=== PATIENT | female | born 1950 | race Caucasian/White ===

== ENCOUNTER → 2016-06-13 | Outpatient (CLI) | payer MEDICARE, MEDICAID ==
[2016-06-13 10:02] LABS: ANION GAP 11 (5-19); BLOOD UREA NITROGEN 12 mg/dL (7-20); CALCIUM 9.3 mg/dL (8.4-10.2); CARBON DIOXIDE 26 mmol/L (22-30); CHLORIDE 106 mmol/L (98-107); CREATININE RESULT 0.87 mg/dL (0.52-1.25); Direct HDL 43 mg/dL (>40); GLUCOSE 100 mg/dL (75-110); POTASSIUM 4.4 mmol/L (3.6-5.0); SODIUM 142.5 mmol/L (137-145); TRIGLYCERIDES 221 mg/dL (<150)
[2016-06-13 10:13] LABS: DIRECT LDL 70 mg/dL (<100)
[2016-06-13 10:16] LABS: VLDL CHOLESTEROL 44.2 mg/dL (10-31)
== END ==
LOC: OD 08:58
PROVIDERS: ATTEND Internal Medicine Cardiovascular Disease
DX: E78.2 Mixed hyperlipidemia (principal)
CPT/HCPCS: 36415; 80048; 80061

== ENCOUNTER 2016-09-04 15:36 | Emergency (ER) | payer MEDICARE, MEDICAID ==
[2016-09-04 16:12] VITALS: BP 139/71
--- NOTE | 2016-09-04 16:58 | ER Document Report ---
HPI - HPI Patient complains to provider of: Wrist pain Pain Level: 0 Context: Patient is a 66-year-old female presents emergency department complaining of right wrist pain. Patient states she fell last evening on an outstretched hand. Admits to pain with movement and with making a fist but otherwise denies any other symptoms. Sensation intact. History of breast cancer - REPRODUCTIVE Reproductive: DENIES: : - DERM Skin Color: Normal Past Medical History - Social History Smoking Status: Unknown if Ever Smoked Family History: Reviewed & Not Pertinent Patient has suicidal ideation: No Patient has homicidal ideation: No - Past Medical History Cardiac Medical History: Reports: Hx Coronary Artery Disease, Hx Heart Attack - 2009, Hx Hypercholesterolemia, Hx Hypertension Denies: Hx Atrial Fibrillation, Hx Congestive Heart Failure, Hx Peripheral Vascular Disease, Hx Pulmonary Embolism, Hx Heart Murmur Pulmonary Medical History: Reports: Hx COPD - no inhalers Denies: Hx Asthma, Hx Bronchitis, Hx Pneumonia, Hx Respiratory Failure, Hx Sleep Apnea, Hx Tuberculosis Neurological Medical History: Denies: Hx Cerebrovascular Accident, Hx Seizures Endocrine Medical History: Denies: Hx Graves' Disease, Hx Hyperthyroidism, Hx Hypothyroidism Renal/ Medical History: Denies: Hx End Stage Renal Disease, Hx Kidney Stones, Hx Ovarian Cysts, Hx Peritoneal Dialysis, Hx Pelvic Inflammatory Disease Malignancy Medical History: Reports: Hx Breast Cancer. Denies: Hx Cervical Cancer, Hx Leukemia, Hx Lung Cancer, Hx Ovarian Cancer GI Medical History: Denies: Hx Crohn's Disease, Hx Gastroesophageal Reflux Disease, Hx Hepatitis, Hx Hiatal Hernia, Hx Irritable Bowel, Hx Liver Failure, Hx Ulcer Musculoskeltal Medical History: Reports Hx Arthritis - ra, Denies Hx Fibromyalgia, Denies Hx Multiple Sclerosis, Denies Hx Muscular Dystrophy Psychiatric Medical History: Reports: Hx Bipolar Disorder Denies: Hx Dementia, Hx Depression, Hx Post Traumatic Stress Disorder, Hx Schizophrenia Traumatic Medical History: Denies: Hx Fractures Infectious Medical History: Denies: Hx Hepatitis, Hx HIV Past Surgical History: Reports: Hx Appendectomy, Hx Cholecystectomy, Hx Mastectomy - bilateral AVOID RIGHT, Hx Tonsillectomy. Denies: Hx Bowel Surgery , Hx Section, Hx Colostomy, Hx Coronary Artery Bypass Graft, Hx Gastric Bypass Surgery, Hx Herniorrhaphy, Hx Hysterectomy, Hx Pacemaker, Hx Tubal Ligation. Comment Only: Hx Open Heart Surgery - stentsX2 - Immunizations Hx Diphtheria, Pertussis, Tetanus Vaccination: Yes Hx Pneumococcal Vaccination: 11/30/11 Vertical Provider Document - CONSTITUTIONAL Agree With Documented VS: Yes Exam Limitations: No Limitations General Appearance: WD/WN, No Apparent Distress - INFECTION CONTROL TRAVEL OUTSIDE OF THE [place] IN LAST 30 DAYS: No - RESPIRATORY O2 Sat by Pulse Oximetry: 95 - CARDIOVASCULAR Pulses: Normal: Radial Notes: Capillary refill less than 2 seconds in all upper extremity digits - MUSCULOSKELETAL/EXTREMETIES Musculoskeletal/Extremeties: MAEW, FROM, Tender - At the base of the thumb on the right hand, No Edema. negative: Eccymosis - NEURO Level of Consciousness: Awake, Alert, Appropriate Motor/Sensory: No Motor Deficit, No Sensory Deficit - DERM Integumentary: Warm, Dry, No Rash Course - Re-evaluation Re-evalutation: 09/04/16 21:01 No evidence of fracture on x-ray. Patient placed in splint for wrist sprain follow up with primary care as needed - Vital Signs Vital signs: Temp Pulse Resp BP Pulse Ox 97.5 F 66 16 139/71 H 95 09/04/16 16:11 09/04/16 16:11 09/04/16 16:11 09/04/16 16:11 09/04/16 16:11 - Diagnostic Test Radiology reviewed: Image reviewed, Reports reviewed Discharge - Discharge Clinical Impression: Wrist pain, acute Condition: Good Disposition: HOME, SELF-CARE Instructions: Wrist Sprain ([facility]), Ice & Elevation ([facility]), Use of Over-The- Counter Ibuprofen ([facility]) Additional Instructions: Follow-up with your primary care provider if your symptoms do not improve in 4- 5 days Forms: Elevated Blood Pressure
== END 2016-09-04 17:00 | disposition home or self-care (01) ==
LOC: ER 15:36
DX: M25.531 Pain in right wrist (principal); Z85.3 Personal history of malignant neoplasm of breast
CPT/HCPCS: 99283; 73130; L3984

== ENCOUNTER → 2016-12-21 | Outpatient (CLI) | payer MEDICARE, MEDICAID ==
[2016-12-21 11:44] LABS: ANION GAP 11 (5-19); BLOOD UREA NITROGEN 20 mg/dL (7-20); CALCIUM 10.2 mg/dL (8.4-10.2); CARBON DIOXIDE 27 mmol/L (22-30); CHLORIDE 106 mmol/L (98-107); CHOLESTEROL 154.51 mg/dL (0-200); Direct HDL 53 mg/dL (>40); GLUCOSE 93 mg/dL (75-110); POTASSIUM 4.4 mmol/L (3.6-5.0); SODIUM 143.6 mmol/L (137-145); TRIGLYCERIDES 121 mg/dL (<150)
[2016-12-21 11:55] LABS: DIRECT LDL 83 mg/dL (<100)
== END ==
LOC: OD 10:28
PROVIDERS: ATTEND Internal Medicine Cardiovascular Disease
DX: E78.2 Mixed hyperlipidemia (principal); Z79.899 Other long term (current) drug therapy
CPT/HCPCS: 36415; 80048; 80061

== ENCOUNTER → 2017-07-05 | Outpatient (CLI) | payer MEDICARE, MEDICAID ==
[2017-07-05 11:15] LABS: ALANINE AMINOTRANSFERASE 35 U/L (9-52); ALKALINE PHOSPHATASE 83 U/L (38-126); ANION GAP 7 (5-19); ASPARTATE AMINO TRANSFERASE 30 U/L (14-36); BILIRUBIN,DIRECT 0.4 mg/dL (0.0-0.4); BILIRUBIN,TOTAL 0.5 mg/dL (0.2-1.3); BLOOD UREA NITROGEN 11 mg/dL (7-20); CALCIUM 9.6 mg/dL (8.4-10.2); CARBON DIOXIDE 29 mmol/L (22-30); CHLORIDE 107 mmol/L (98-107); CHOLESTEROL 155.27 mg/dL (0-200); GLUCOSE 94 mg/dL (75-110); POTASSIUM 4.6 mmol/L (3.6-5.0); SODIUM 143.4 mmol/L (137-145); TOTAL PROTEIN 6.7 g/dL (6.3-8.2); TRIGLYCERIDES 205 mg/dL (<150)
[2017-07-05 11:26] LABS: DIRECT LDL 78 mg/dL (<100)
== END ==
LOC: OD 10:10
PROVIDERS: ATTEND Internal Medicine Cardiovascular Disease
DX: E78.2 Mixed hyperlipidemia (principal); I10 Essential (primary) hypertension; Z79.899 Other long term (current) drug therapy
CPT/HCPCS: 36415; 80048; 80061; 80076

== ENCOUNTER → 2017-08-15 | Outpatient (CLI) | payer MEDICARE, MEDICAID ==
[~2017-08-15] MED LIST: REGADENOSON INJ 0.4 MG/5 ML DISP.SYRIN IV ONE
--- NOTE | 2017-08-16 08:34 | RADIOLOGY REPORT ---
STRESS TEST REPORT PATIENT NAME: DIANE STERLING ROOM#: DATE OF SERVICE: 08/15/2017 AGE: 67Y ORDER#: [id number] REFERRING MD: ROMY BOYD M.D. PROCEDURE PERFORMED: Rest/stress single isotope Cardiolite SPECT imaging with IV Lexiscan stress and gated SPECT imaging. INDICATION: Assessment of coronary artery disease. CLINICAL HISTORY: This 67-year-old female with coronary artery disease and continuing risk factors of hypertension, hypercholesterolemia, current symptomatology includes chest pain. REPORT The patient received IV Lexiscan of 0.4 mg infused over 10 seconds. The resting heart rate was 74 BPM and increased to 96 BPM at end infusion. The resting blood pressure was 114/78 and decreased to 108/66 at end infusion. The patient had symptoms of dyspnea, shortness of breath, and some nausea, but no chest pains. Resting 12-lead EKG showed NSR70 BPM with nonspecific ST/T changes in the anterolateral leads. At end infusion, heart rate was 97 BPM and no increased ST changes were seen. Myocardial perfusion imaging was performed at rest 60 minutes following the injection of 10.49 mCi of Cardiolite. Ten seconds after the IV Lexiscan injection, the patient was injected with 32.8 mCi of Cardiolite and flushed. Gated post-stress tomographic imaging was performed 60 minutes after stress. SUMMARY OF FINDINGS: The overall quality of the study is good. The left ventricular cavity is noted to be normal in size on both the rest and stress studies. There is no evidence of abnormal dilatation of the left ventricle. The left ventricular ejection fraction is 59%. SPECT images showed a small reversible perfusion defect in the apical anterior wall, this is incomplete reversibility only. The apical lateral wall also showed a small reversible perfusion defect. There is a fixed perfusion defect affecting the apical inferior wall. Gated SPECT imaging showed reduced motion contraction in the apical anterior wall. The fixed apical inferior wall perfusion defect showed no motion contraction. The left ventricular ejection fraction was calculated to be 59%. IMPRESSION: Myocardial perfusion imaging is abnormal. There are 2 small areas of reversible perfusion defect seen in the apical anterior wall and the apical lateral wall, the former showed incomplete reversibility, the latter showed complete reversibility. There is also a small fixed perfusion defect in the apical inferior wall with a reduction motion contraction in the apical anterior wall and no motion contraction in the apical inferior wall. No prior studies for comparison. INTERPRETING PHYSICIAN: ROMY BOYD M.D. /: [id number] TT: [id number] ID: [id number] /: [id number] TD: [id number] JOB: [id number] cc:ROMY BOYD M.D. > MTDD
== END ==
LOC: RAD 06:00
PROVIDERS: ATTEND Internal Medicine Cardiovascular Disease
DX: I25.119 Atherosclerotic heart disease of native coronary artery with unspecified angina pectoris (principal)
CPT/HCPCS: 93017; 78452; A9500; J2785; Q9969

== ENCOUNTER 2017-09-28 09:00 | Day surgery (SDC) | payer MEDICARE, MEDICAID ==
[~2017-09-28 09:00] MED LIST changes: +DIPHENHYDRAMINE HCL 50 MG/ML VIAL ONE; +EPINEPHRINE INJ 1 MG/10 ML DISP.SYRIN ONE; +FLUMAZENIL INJ 0.5 MG/5 ML VIAL ONE; +GLUCAGON,HUMAN RECOMB 1 MG INJ ONE; +NALOXONE HCL INJ/PF 0.4 MG/1 ML SDV ONE; +ONDANSETRON HCL INJ/PF 4 MG/2 ML SDV ONE; -REGADENOSON INJ 0.4 MG/5 ML DISP.SYRIN IV ONE
[2017-09-28] MEDS: MIDAZOLAM 2 MG/2 ML INJ ONE ×4 (09:20→09:35)
[2017-09-28] MEDS: FENTANYL CITRATE INJ/PF 100 MCG/2 ML AMPUL ONE ×3 (09:21→09:42)
--- NOTE | 2017-09-28 09:54 | Discharge Summary ---
Discharge Summary (SDC) - Discharge Final Diagnosis: 1. Normal colon 2. History of colon polyps Date of Surgery: 09/28/17 Discharge Date: 09/28/17 Condition: Good Treatment or Instructions: [place] [id number] POST ENDOSCOPY DISCHARGE INSTRUCTIONS 1. Diet: Start clear liquids that a regular diet as tolerated. 2. Resume all preoperative medications. All oral anticoagulants and aspirins can be resumed 24 hours after procedure. 3. If a polypectomy was performed some bleeding per rectum may occur. This should stop within 3 days. If not, please contact the office. 4. If you had a colonoscopy you may experience some bloating and delayed return of normal bowel function for several days, your regular bowel movement pattern should resume within a week. 5. Please contact [facility] at to make an appointment with Dr. Biggs for 1 to 3 weeks following procedure. 6. If you have any questions or concerns regarding your care,treatment plan or follow up, please contact our office. 7. Per surveillance guidelines, patient be appropriate candidate for consideration for follow-up colonoscopy on an accelerated time frame in 6-8 years Referrals: SON PARADA MD [Primary Care Provider] - Discharge Diet: As Tolerated Discharge Activity: Activity As Tolerated Home Care Assistance: None Needed Report the Following to Your Physician Immediately: Shortness of Breath, Increase in Pain, Fever over 101 Degrees
--- NOTE | 2017-09-28 09:57 | Operative Report ---
Operative Report DATE OF SURGERY: 09/28/17 PREOPERATIVE DIAGNOSIS: 1. Personal history of colon polyp. 2. History of breast carcinoma POSTOPERATIVE DIAGNOSIS: Same wit. 1. external hemorrhoids, edematous. 2. Otherwise normal colonoscopy OPERATION: Total colonoscopy to cecum with photodocumentation SURGEON: NARDA HARRY ANESTHESIA: Moderate Sedation TISSUE REMOVED OR ALTERED: None COMPLICATIONS: None ESTIMATED BLOOD LOSS: None INTRAOPERATIVE FINDINGS: See below PROCEDURE: Obtaining informed consent the patient was taken from the preoperative holding area to the main endoscopy suite where monitoring devices were attached to the patient. Plan and surgical timeout were conducted The patient was placed in the left lateral decubitus position with knees to chest. A perianal examination was performed. There were 3 external hemorrhoids , edematous, nonthrombosed. There was no visible or palpable anorectal pathology. Sphincter tone was felt to be normal. The flexible adult colonoscope was advanced through the anal rectal canal, all the way to the cecum. Visualization of the cecum was achieved and the ileocecal valve, the appendiceal orifice and transillumination of the anterior abdominal wall. This was an excellent study on the well-prepped bowel. The colonoscope was withdrawn slowly and methodically checked and the mucosa carefully. There was no evidence of tumor, stricture, bleeding or polyp. There was no evidence of diverticuloses. The scope was slowly withdrawn through the anal rectal canal. Complete visualization of the rectum was achieved with photodocumentation. The scope was withdrawn to the patient's anus. The patient tolerated the procedure well and was taken to the recovery area in stable condition. Per surveillance guidelines, patient be appropriate candidate for surveillance colonoscopy in 6-8 years given her slightly increased risk of colon cancer based on personal history of polyps removed in the past, and breast cancer.
[2017-09-28 11:09] VITALS: BP 114/66
== END 2017-09-28 11:05 | disposition home or self-care (01) ==
LOC: END 09:00
PROVIDERS: ATTEND Surgery
DX: Z12.11 Encounter for screening for malignant neoplasm of colon (principal); Z86.010 Personal history of colon polyps; I10 Essential (primary) hypertension; I25.10 Atherosclerotic heart disease of native coronary artery without angina pectoris; E78.00 Pure hypercholesterolemia, unspecified; M06.9 Rheumatoid arthritis, unspecified; F17.210 Nicotine dependence, cigarettes, uncomplicated; K44.9 Diaphragmatic hernia without obstruction or gangrene; I74.9 Embolism and thrombosis of unspecified artery; F32.9 Major depressive disorder, single episode, unspecified; Z79.82 Long term (current) use of aspirin; Z85.3 Personal history of malignant neoplasm of breast
CPT/HCPCS: G0121; J2250; J3010; 45378; J0171; J1200; J1610; J2310; J2405; J3490

== ENCOUNTER → 2018-02-26 | Outpatient (CLI) | payer MEDICARE, MEDICAID ==
--- NOTE | 2018-02-26 11:12 | RADIOLOGY REPORT (SQ) ---
EXAM DESCRIPTION: VENOUS UNILATERAL LOWER COMPLETED DATE/TIME: 02/26/2018 11:03 am REASON FOR STUDY: LLE PAIN AND SWELLING M79.609 PAIN IN UNSPECIFIED LIMB M79.89 OTHER SPECIFIED SO FT TISSUE DISORDERS COMPARISON: None. TECHNIQUE: Dynamic and static llanes scale and color images acquired of the left leg venous system. Se lected spectral images acquired with additional compression and augmentation maneuvers. The contralat eral common femoral vein and saphenofemoral junction were also imaged. Images stored on PACS. LIMITATIONS: Left peroneal veins were not visualized FINDINGS: LEFT COMMON FEMORAL: Normal phasicity, compression and augmentation. No visualized echogenic material on g ray scale. No defects on color images. FEMORAL: Normal compression and augmentation. No visualized echogenic material on llanes scale. No defe cts on color images. POPLITEAL: Normal compression, augmentation. No visualized echogenic material on llanes scale. No defec ts on color images. PERONEAL VEINS: NOT VISUALIZED. POSTERIOR TIBIAL VEINS: Normal compression, augmentation. No visualized echogenic material on llanes [facility]. No defects on color images GSV and SSV: Normal compression, augmentation. No visualized echogenic material on llanes scale. No def ects on color images. ANY DEEP VENOUS INSUFFICIENCY: Not evaluated. ANY EVIDENCE OF POPLITEAL CYST: No. OTHER: No other significant finding. RIGHT COMMON FEMORAL VEIN AND SAPHENOFEMORAL JUNCTION: Normal phasicity, compression and augmentation. No visualized echogenic material on llanes scale. No de fects on color images. IMPRESSION: NO EVIDENCE OF DVT OR SVT IN THE LEFT LEG. TECHNICAL DOCUMENTATION: JOB ID: [id number] [employer]- All Rights Reserved Reading location - IP/workstation name: [email or web address] / [email or web address]
--- NOTE | 2018-02-26 11:32 | RADIOLOGY REPORT (SQ) ---
EXAM DESCRIPTION: TIBIA FIBULA LEFT COMPLETED DATE/TIME: 02/26/2018 11:13 am REASON FOR STUDY: PAIN IN UNSPEC LIMB(M79.609),OTHER SPECIFIED SOFT TISSUE DISORDERS (M79.89) M79.60 9 PAIN IN UNSPECIFIED LIMB M79.89 OTHER SPECIFIED SOFT TISSUE DISORDERS COMPARISON: None. NUMBER OF VIEWS: Two views. TECHNIQUE: Two radiographic images acquired of the left tibia and fibula to include the knee and ank le in at least one projection. LIMITATIONS: None. FINDINGS: MINERALIZATION: Normal. BONES: No acute fracture or dislocation. No worrisome bone lesions. SOFT TISSUES: No obvious swelling or foreign body. OTHER: Mild degenerative changes at the ankle. IMPRESSION: 1. NEGATIVE STUDY OF THE LEFT TIBIA AND FIBULA. TECHNICAL DOCUMENTATION: JOB ID: [id number] [email or web address]- All Rights Reserved Reading location - IP/workstation name: [email or web address]
--- NOTE | 2018-02-26 11:33 | RADIOLOGY REPORT (SQ) ---
EXAM DESCRIPTION: ANKLE LEFT COMPLETE COMPLETED DATE/TIME: 02/26/2018 11:13 am REASON FOR STUDY: PAIN IN UNSPECIFIED LIMB (M79.609), OTHER SPECIFIED SOFT TISSUE DIS(M79.89) M79.60 9 PAIN IN UNSPECIFIED LIMB M79.89 OTHER SPECIFIED SOFT TISSUE DISORDERS COMPARISON: None. NUMBER OF VIEWS: Three views. TECHNIQUE: AP, lateral, and oblique radiographic images acquired of the left ankle. LIMITATIONS: None. FINDINGS: MINERALIZATION: Normal. BONES: No acute fracture or dislocation. Calcaneal spurs. JOINTS: No effusions. SOFT TISSUES: No soft tissue swelling. No foreign body. OTHER: No other significant finding. IMPRESSION: 1. No acute osseous findings. 2. Calcaneal spurs. TECHNICAL DOCUMENTATION: JOB ID: [id number]- All Rights Reserved Reading location - IP/workstation name: [email or web address]
== END ==
LOC: SP 09:34
PROVIDERS: ATTEND Internal Medicine
DX: M79.662 Pain in left lower leg (principal); M77.32 Calcaneal spur, left foot
CPT/HCPCS: 93971

== ENCOUNTER → 2018-03-06 | Outpatient (CLI) | payer MEDICARE, MEDICAID ==
--- NOTE | 2018-03-06 16:45 | RADIOLOGY REPORT (SQ) ---
EXAM DESCRIPTION: NM 3 PHASE BONE SCAN COMPLETED DATE/TIME: 03/06/2018 2:08 pm REASON FOR STUDY: STRESS FX LEFT ANKLE (M84.372A) M84.372A STRESS FRACTURE, LEFT ANKLE, INITIAL ENC OUNTER FOR COMPARISON: 02/26/2018 radiographs of the left tibia and fibula and ankle. RADIONUCLIDE AND DOSE: 21.3 millicuries Tc99m HDP. The route of agent administration: Intravenous. ADDITIONAL DRUGS AND DOSES: None. TECHNIQUE: Following injection of the radiopharmaceutical, serial blood flow images acquired. Equil ibrium blood pool images then acquired. Routine delayed images at 3 hour acquired of the areas of cl inical concern with additional focused images as needed. AREA OF INTEREST: Left ankle LIMITATIONS: None. FINDINGS: VASCULAR FLOW IMAGES: No asymmetry or focal areas of hyperemia. BLOOD POOL IMAGES: No asymmetry or focal areas of soft-tissue hyper-perfusion. BONES: No overtly suspicious changes. Spotty areas of uptake in the bilateral mid feet and in the le ft forefoot, likely the great toe MP joint. Changes look degenerative. OTHER: No other significant finding. IMPRESSION: 1. No gross evidence of ankle region fracture. Suspect degenerative changes in the feet as above. Only seen on delayed imaging. 1st 2 phases of the bone scan are normal. COMMENT: Quality measure 147: Current bone scan is compared with any available plain radiographs, p rior bone scans, and CT/MRI. TECHNICAL DOCUMENTATION: JOB ID: [id number] [employer]- All Rights Reserved Reading location - IP/workstation name: [email or web address]
== END ==
LOC: RAD 09:43
PROVIDERS: ATTEND Family Medicine
DX: M84.372A Stress fracture, left ankle, initial encounter for fracture (principal)
CPT/HCPCS: 78315; A9561; Q9969

== ENCOUNTER → 2018-03-06 | Outpatient (CLI) | payer MEDICARE, MEDICAID ==
[2018-03-06 10:21] LABS: ALANINE AMINOTRANSFERASE 24 U/L (9-52); ALKALINE PHOSPHATASE 95 U/L (38-126); ANION GAP 11 (5-19); ASPARTATE AMINO TRANSFERASE 25 U/L (14-36); BILIRUBIN,DIRECT 0.3 mg/dL (0.0-0.4); BILIRUBIN,TOTAL 0.6 mg/dL (0.2-1.3); BLOOD UREA NITROGEN 13 mg/dL (7-20); CALCIUM 9.6 mg/dL (8.4-10.2); CARBON DIOXIDE 28 mmol/L (22-30); CHLORIDE 105 mmol/L (98-107); CHOLESTEROL 163.22 mg/dL (0-200); GLUCOSE 105 mg/dL (75-110); POTASSIUM 4.6 mmol/L (3.6-5.0); SODIUM 143.9 mmol/L (137-145); TOTAL PROTEIN 6.8 g/dL (6.3-8.2); TRIGLYCERIDES 262 mg/dL (<150)
[2018-03-06 10:32] LABS: DIRECT LDL 92 mg/dL (<100)
[2018-03-06 10:35] LABS: VLDL CHOLESTEROL 52.4 mg/dL (10-31)
== END ==
LOC: OD 09:26
PROVIDERS: ATTEND Internal Medicine Cardiovascular Disease
DX: E78.2 Mixed hyperlipidemia (principal); I10 Essential (primary) hypertension; Z79.899 Other long term (current) drug therapy
CPT/HCPCS: 36415; 80048; 80061; 80076

== ENCOUNTER → 2018-06-04 | Outpatient (CLI) | payer MEDICARE, MEDICAID ==
[2018-06-04 11:03] LABS: HEMATOCRIT 48.1 % (36.0-47.0); HEMOGLOBIN 16.8 g/dL (12.0-15.5); MEAN CORPUSCULAR HEMOGLOBIN 30.8 pg (27.0-33.4); MEAN CORPUSCULAR HGB CONC 34.9 g/dL (32.0-36.0); MEAN CORPUSCULAR VOLUME 88 fl (80-97); PLATELET COUNT 182 10^3/uL (150-450); RED BLOOD COUNT 5.46 10^6/uL (3.72-5.28); WHITE BLOOD COUNT 9.8 10^3/uL (4.0-10.5)
[2018-06-04 11:26] LABS: ALANINE AMINOTRANSFERASE 31 U/L (9-52); ALBUMIN 4.4 g/dL (3.5-5.0); ALKALINE PHOSPHATASE 95 U/L (38-126); ANION GAP 8 (5-19); ASPARTATE AMINO TRANSFERASE 32 U/L (14-36); BILIRUBIN,DIRECT 0.2 mg/dL (0.0-0.4); BILIRUBIN,TOTAL 0.6 mg/dL (0.2-1.3); BLOOD UREA NITROGEN 12 mg/dL (7-20); CALCIUM 9.6 mg/dL (8.4-10.2); CARBON DIOXIDE 29 mmol/L (22-30); CHLORIDE 106 mmol/L (98-107); CHOLESTEROL 141.51 mg/dL (0-200); GLUCOSE 101 mg/dL (75-110); POTASSIUM 4.6 mmol/L (3.6-5.0); SODIUM 142.8 mmol/L (137-145); TOTAL PROTEIN 6.8 g/dL (6.3-8.2); TRIGLYCERIDES 274 mg/dL (<150)
[2018-06-04 11:37] LABS: DIRECT LDL 66 mg/dL (<100)
[2018-06-04 11:44] LABS: VLDL CHOLESTEROL 54.8 mg/dL (10-31)
== END ==
LOC: OD 10:32
PROVIDERS: ATTEND Internal Medicine Cardiovascular Disease
DX: E78.2 Mixed hyperlipidemia (principal); I10 Essential (primary) hypertension; Z79.899 Other long term (current) drug therapy
CPT/HCPCS: 36415; 80048; 80061; 80076; 85027

== ENCOUNTER → 2018-08-20 | Outpatient (CLI) | payer MEDICARE, MEDICAID ==
[2018-08-20 10:36] LABS: HEMATOCRIT 45.1 % (36.0-47.0); HEMOGLOBIN 15.4 g/dL (12.0-15.5); MEAN CORPUSCULAR HEMOGLOBIN 29.8 pg (27.0-33.4); MEAN CORPUSCULAR HGB CONC 34.1 g/dL (32.0-36.0); MEAN CORPUSCULAR VOLUME 87 fl (80-97); PLATELET COUNT 184 10^3/uL (150-450); RED BLOOD COUNT 5.16 10^6/uL (3.72-5.28); RED CELL DISTRIBUTION WIDTH 13.2 % (11.5-14.0); WHITE BLOOD COUNT 10.2 10^3/uL (4.0-10.5)
[2018-08-20 10:59] LABS: ALANINE AMINOTRANSFERASE 26 U/L (9-52); ALKALINE PHOSPHATASE 88 U/L (38-126); ANION GAP 11 (5-19); ASPARTATE AMINO TRANSFERASE 27 U/L (14-36); BILIRUBIN,DIRECT 0.2 mg/dL (0.0-0.4); BILIRUBIN,TOTAL 0.6 mg/dL (0.2-1.3); BLOOD UREA NITROGEN 14 mg/dL (7-20); CALCIUM 9.6 mg/dL (8.4-10.2); CARBON DIOXIDE 26 mmol/L (22-30); CHLORIDE 105 mmol/L (98-107); CHOLESTEROL 149.98 mg/dL (0-200); GLUCOSE 101 mg/dL (75-110); POTASSIUM 4.3 mmol/L (3.6-5.0); SODIUM 141.6 mmol/L (137-145); TOTAL PROTEIN 6.8 g/dL (6.3-8.2); TRIGLYCERIDES 295 mg/dL (<150)
[2018-08-20 11:10] LABS: DIRECT LDL 78 mg/dL (<100)
== END ==
LOC: OD 09:59
PROVIDERS: ATTEND Internal Medicine Cardiovascular Disease
DX: I10 Essential (primary) hypertension (principal); E78.2 Mixed hyperlipidemia; Z79.899 Other long term (current) drug therapy
CPT/HCPCS: 36415; 80048; 80061; 80076; 85027

== ENCOUNTER → 2018-11-30 | Outpatient (CLI) | payer MEDICARE, MEDICAID ==
[2018-11-30 11:06] LABS: ALKALINE PHOSPHATASE 97 U/L (38-126); ANION GAP 9 (5-19); ASPARTATE AMINO TRANSFERASE 28 U/L (14-36); BILIRUBIN,DIRECT 0.2 mg/dL (0.0-0.4); BILIRUBIN,TOTAL 0.6 mg/dL (0.2-1.3); BLOOD UREA NITROGEN 13 mg/dL (7-20); CALCIUM 9.2 mg/dL (8.4-10.2); CARBON DIOXIDE 26 mmol/L (22-30); CHLORIDE 106 mmol/L (98-107); CHOLESTEROL 139.09 mg/dL (0-200); GLUCOSE 106 mg/dL (75-110); POTASSIUM 4.2 mmol/L (3.6-5.0); TOTAL PROTEIN 6.5 g/dL (6.3-8.2); TRIGLYCERIDES 326 mg/dL (<150)
[2018-11-30 11:17] LABS: DIRECT LDL 61 mg/dL (<100)
[2018-11-30 11:18] LABS: VLDL CHOLESTEROL 65.2 mg/dL (10-31)
== END ==
LOC: OD 09:28
PROVIDERS: ATTEND Physician Assistant
DX: E78.2 Mixed hyperlipidemia (principal); I10 Essential (primary) hypertension; Z79.899 Other long term (current) drug therapy
CPT/HCPCS: 36415; 80048; 80061; 80076

== ENCOUNTER → 2019-01-29 | Outpatient (CLI) | payer MEDICARE, MEDICAID ==
[~2019-01-29] MED LIST changes: -DIPHENHYDRAMINE HCL 50 MG/ML VIAL ONE; -EPINEPHRINE INJ 1 MG/10 ML DISP.SYRIN ONE; -FLUMAZENIL INJ 0.5 MG/5 ML VIAL ONE; -GLUCAGON,HUMAN RECOMB 1 MG INJ ONE; -NALOXONE HCL INJ/PF 0.4 MG/1 ML SDV ONE; -ONDANSETRON HCL INJ/PF 4 MG/2 ML SDV ONE; +REGADENOSON INJ 0.4 MG/5 ML DISP.SYRIN IV ONE
--- NOTE | 2019-01-29 13:10 | DRAGON STRESS TEST REPORT ---
Indication: Assess shortness of breath and coronary artery disease Clinical history: This 68 years old female with [known] coronary artery disease, old inferior GA, status post BMS x3, with cardiac risk factors of hypertension, dyslipidemia, and family history, current symptomatology includes exertional dyspnea and heartburn. Report: Patient received IV Lexiscan[ 0.4] mg infused over 10 seconds and flushed. The resting heart rate was 63 bpm and increased to 102 bpm at end infusion. The resting blood pressure was 124/64 and increased to 122/70 at end infusion. The patient had symptoms of shortness of breath but no chest pains. The resting 12-lead EKG showed NSR 63 with nonspecific T inversions. At end infusion, NSR 102, nonspecific anterolateral ST-T changes in resting EKG were seen. Myocardial perfusion imaging was performed at rest[ 60] minutes following the injection of 11.43 mCi of Cardiolite. 10 seconds after the IV Lexiscan infusion, patient was injected with 33.5 mCi of Cardiolite and flushed. Gated post stress tomographic imaging was performed [60] minutes after stress. Findings: The overall quality of the study is fair, there was breast attenuation, soft tissue attenuation correction software not available on this imaging camera. The left ventricular cavity is noted to be enlarged on the stress study. There is evidence of abnormal transient ischemic dilatation of the left ventricle, T ID ratio was 1.22 SPECT images showed IV Lexiscan induced reversible ischemia in the entire anterior wall, apical lateral wall, basal inferior wall, and basal inferoseptal wall. There was no fixed perfusion defect. Gated SPECT imaging demonstrates reduced motion and contraction in the apical anterior wall, basal anterior wall, basal inferior wall, inferolateral wall and inferoseptal wall. The left ventricular ejection fraction was calculated to be 58%. Impression Myocardial perfusion imaging is abnormal. There is abnormal transient ischemic dilatation of the left ventricle with TID ratio 1.22, this suggests critical stenosis of a major vessel or multivessel disease and is a powerful marker for adverse outcomes. There are large areas of reversible ischemia in the entire anterior wall, apical lateral wall, basal inferior wall, and basal inferoseptal wall. There was no fixed perfusion defect. Overall left ventricular systolic function was still normal and regional wall motion abnormalities were seen in all the reversible ischemic areas. This suggests ischemia in the diagonal and RCA territories. Recommendation : Optimize medical therapy, consider left heart catheterization. MTDD
== END ==
LOC: RAD 06:00
PROVIDERS: ATTEND Internal Medicine Cardiovascular Disease
DX: I25.119 Atherosclerotic heart disease of native coronary artery with unspecified angina pectoris (principal); R06.02 Shortness of breath
CPT/HCPCS: 93017; 78452; A9500; J2785; Q9969

== ENCOUNTER 2019-02-06 18:02 | Emergency (ER) | payer MEDICARE, MEDICAID ==
--- NOTE | 2019-02-06 19:13 | ER Document Report ---
ED Medical Screen (RME) - General Chief Complaint: Rectal Pain Stated Complaint: POSSIBLE HEMORRHOIDS Time Seen by Provider: 02/06/19 19:11 Primary Care Provider: ROMY BOYD MD [Primary Care Provider] - Follow up as needed Mode of Arrival: Ambulatory Information source: Patient Notes: Patient presents complaining of rectal bleeding. Patient does states she has hemorrhoids. Patient states that the toilet was full of blood and that she was continuing to bleed. Patient denies any abdominal pain. Patient denies any lightheadedness or dizziness. I have greeted and performed a rapid initial assessment of this patient. A comprehensive ED assessment and evaluation of the patient, analysis of test results and completion of the medical decision making process will be conducted by additional ED providers. TRAVEL OUTSIDE OF THE [place] IN LAST 30 DAYS: No - Related Data Allergies/Adverse Reactions: No Known Allergies Allergy (Verified 02/06/19 19:08) Past Medical History - Social History Frequency of alcohol use: None - Past Medical History Cardiac Medical History: Reports: Hx Coronary Artery Disease, Hx Heart Attack - 2009, Hx Hypercholesterolemia, Hx Hypertension Denies: Hx Atrial Fibrillation, Hx Congestive Heart Failure, Hx Peripheral Vascular Disease, Hx Pulmonary Embolism, Hx Heart Murmur Pulmonary Medical History: Reports: Hx COPD - no inhalers Denies: Hx Asthma, Hx Bronchitis, Hx Pneumonia, Hx Respiratory Failure, Hx Sleep Apnea, Hx Tuberculosis Neurological Medical History: Denies: Hx Cerebrovascular Accident, Hx Seizures, Hx Parkinson's Disease Endocrine Medical History: Denies: Hx Graves' Disease, Hx Hyperthyroidism, Hx Hypothyroidism Renal/ Medical History: Denies: Hx End Stage Renal Disease, Hx Kidney Stones, Hx Ovarian Cysts, Hx Peritoneal Dialysis, Hx Pelvic Inflammatory Disease Malignancy Medical History: Reports: Hx Breast Cancer. Denies: Hx Cervical Cancer, Hx Leukemia, Hx Lung Cancer, Hx Ovarian Cancer GI Medical History: Denies: Hx Crohn's Disease, Hx Gastroesophageal Reflux Disease, Hx Hepatitis, Hx Hiatal Hernia, Hx Irritable Bowel, Hx Liver Failure, Hx Pancreatitis, Hx Ulcer Musculoskeltal Medical History: Reports Hx Arthritis - ra, Denies Hx Fibromyalgia, Denies Hx Multiple Sclerosis, Denies Hx Muscular Dystrophy, Denies Hx Systemic Lupus Erythematosus Psychiatric Medical History: Reports: Hx Bipolar Disorder Denies: Hx Dementia, Hx Depression, Hx Post Traumatic Stress Disorder, Hx Schizophrenia Traumatic Medical History: Denies: Hx Fractures Infectious Medical History: Denies: Hx Hepatitis, Hx HIV Past Surgical History: Reports: Hx Appendectomy, Hx Cholecystectomy, Hx Mastectomy - bilateral AVOID RIGHT, Hx Tonsillectomy. Denies: Hx Bowel Surgery, Hx Section, Hx Colostomy, Hx Coronary Artery Bypass Graft, Hx Gastric Bypass Surgery, Hx Herniorrhaphy, Hx Hysterectomy, Hx Pacemaker, Hx Tubal Ligation. Comment Only: Hx Open Heart Surgery - stentsX2 - Immunizations Hx Diphtheria, Pertussis, Tetanus Vaccination: Yes Physical Exam - Vital signs Vitals: Temp Pulse Resp BP Pulse Ox 98.2 F 75 18 121/62 94 02/06/19 18:14 02/06/19 18:14 02/06/19 18:14 02/06/19 18:14 02/06/19 18:14 - General General appearance: Appears well, Alert In distress: None Course - Vital Signs Vital signs: Temp Pulse Resp BP Pulse Ox 98.2 F 75 18 121/62 94 02/06/19 18:14 02/06/19 18:14 02/06/19 18:14 02/06/19 18:14 02/06/19 18:14 Doctor's Discharge - Discharge Referrals: ROMY BOYD MD [Primary Care Provider] - Follow up as needed
[2019-02-06 19:50] LABS: ABSOLUTE BASOPHILS # (AUTO) 0.1 10^3/uL (0.0-0.2); ABSOLUTE EOSINOPHILS # (AUTO) 0.2 10^3/uL (0.0-0.6); ABSOLUTE LYMPHOCYTES (AUTO) 3.2 10^3/uL (0.5-4.7); ABSOLUTE MONOCYTES (AUTO) 0.7 10^3/uL (0.1-1.4); ABSOLUTE NEUT (AUTO) 7.6 10^3/uL (1.7-8.2); BASOPHILS % (AUTO) 0.5 % (0-2); EOSINOPHILS % (AUTO) 1.8 % (0-6); HEMATOCRIT 45.3 % (36.0-47.0); HEMOGLOBIN 15.3 g/dL (12.0-15.5); LYMPHOCYTES % (AUTO) 26.8 % (13-45); MEAN CORPUSCULAR HEMOGLOBIN 29.4 pg (27.0-33.4); MEAN CORPUSCULAR HGB CONC 33.8 g/dL (32.0-36.0); MEAN CORPUSCULAR VOLUME 87 fl (80-97); MONOCYTES % (AUTO) 6.1 % (3-13); PLATELET COUNT 189 10^3/uL (150-450); RED BLOOD COUNT 5.22 10^6/uL (3.72-5.28); RED CELL DISTRIBUTION WIDTH 13.8 % (11.5-14.0); SEGMENTED NEUTROPHILS % (AUTO) 64.8 % (42-78); TOTAL CELLS COUNTED % (AUTO) 100 %; WHITE BLOOD COUNT 11.8 10^3/uL (4.0-10.5)
[2019-02-06 20:03] LABS: INTERNATIONAL RATION (INR) 0.92; PROTHROMBIN TIME 12.4 SEC (11.4-15.4)
[2019-02-06 20:04] LABS: PARTIAL THROMBOPLASTIN TIME 24.7 SEC (23.5-35.8)
[2019-02-06 20:10] LABS: ALKALINE PHOSPHATASE 93 U/L (38-126); ANION GAP 10 (5-19); ASPARTATE AMINO TRANSFERASE 33 U/L (14-36); BILIRUBIN,DIRECT 0.2 mg/dL (0.0-0.4); BILIRUBIN,TOTAL 0.3 mg/dL (0.2-1.3); BLOOD UREA NITROGEN 14 mg/dL (7-20); CALCIUM 9.7 mg/dL (8.4-10.2); CARBON DIOXIDE 28 mmol/L (22-30); CHLORIDE 104 mmol/L (98-107); GLUCOSE 98 mg/dL (75-110); POTASSIUM 4.6 mmol/L (3.6-5.0); TOTAL PROTEIN 6.9 g/dL (6.3-8.2)
--- NOTE | 2019-02-06 22:09 | ER Document Report ---
ED GI/ - General Chief Complaint: Rectal Pain Stated Complaint: POSSIBLE HEMORRHOIDS Time Seen by Provider: 02/06/19 19:11 Primary Care Provider: [facility] [Provider Group] - Follow up in 3-5 days Mode of Arrival: Ambulatory Notes: Patient is a 68-year-old female that comes emergency department for chief complaint of bright red blood per rectum. She states that she noticed this 3 times today but the last time she noticed that there was quite a bit more blood in the toilet. The blood is very bright, there is no black or dark stool noted. When asked she reports this was still less than a tablespoon. She denies any abdominal pain, fever/chills, nausea/vomiting, dizziness. She states she had a negative colonoscopy 6 months ago. She is not on a blood thinner. She does report a history of hemorrhoids but states she just became concerned after the most recent episode and wants to be checked. She denies any current symptoms. TRAVEL OUTSIDE OF THE [place] IN LAST 30 DAYS: No - Related Data Allergies/Adverse Reactions: No Known Allergies Allergy (Verified 02/06/19 19:08) Past Medical History - General Information source: Patient - Social History Smoking Status: Current Every Day Smoker Frequency of alcohol use: None Lives with: Family Family History: Reviewed & Not Pertinent Patient has suicidal ideation: No Patient has homicidal ideation: No - Past Medical History Cardiac Medical History: Reports: Hx Coronary Artery Disease, Hx Heart Attack - 2009, Hx Hypercholesterolemia, Hx Hypertension Denies: Hx Atrial Fibrillation, Hx Congestive Heart Failure, Hx Peripheral Vascular Disease, Hx Pulmonary Embolism, Hx Heart Murmur Pulmonary Medical History: Reports: Hx COPD - no inhalers Denies: Hx Asthma, Hx Bronchitis, Hx Pneumonia, Hx Respiratory Failure, Hx Sleep Apnea, Hx Tuberculosis Neurological Medical History: Denies: Hx Cerebrovascular Accident, Hx Seizures, Hx Parkinson's Disease Endocrine Medical History: Denies: Hx Graves' Disease, Hx Hyperthyroidism, Hx Hypothyroidism Renal/ Medical History: Denies: Hx End Stage Renal Disease, Hx Kidney Stones, Hx Ovarian Cysts, Hx Peritoneal Dialysis, Hx Pelvic Inflammatory Disease Malignancy Medical History: Reports: Hx Breast Cancer. Denies: Hx Cervical Cancer, Hx Leukemia, Hx Lung Cancer, Hx Ovarian Cancer GI Medical History: Denies: Hx Crohn's Disease, Hx Gastroesophageal Reflux Disease, Hx Hepatitis, Hx Hiatal Hernia, Hx Irritable Bowel, Hx Liver Failure, Hx Pancreatitis, Hx Ulcer Musculoskeletal Medical History: Reports Hx Arthritis - ra, Denies Hx Fibromyalgia, Denies Hx Multiple Sclerosis, Denies Hx Muscular Dystrophy, Denies Hx Systemic Lupus Erythematosus Psychiatric Medical History: Reports: Hx Bipolar Disorder Denies: Hx Dementia, Hx Depression, Hx Post Traumatic Stress Disorder, Hx Schizophrenia Traumatic Medical History: Denies: Hx Fractures Infectious Medical History: Denies: Hx Hepatitis, Hx HIV Past Surgical History: Reports: Hx Appendectomy, Hx Cholecystectomy, Hx Mastectomy - bilateral AVOID RIGHT, Hx Tonsillectomy. Denies: Hx Bowel Surgery, Hx Section, Hx Colostomy, Hx Coronary Artery Bypass Graft, Hx Gastric Bypass Surgery, Hx Herniorrhaphy, Hx Hysterectomy, Hx Pacemaker, Hx Tubal Ligation. Comment Only: Hx Open Heart Surgery - stentsX2 - Immunizations Hx Diphtheria, Pertussis, Tetanus Vaccination: Yes Hx Pneumococcal Vaccination: 11/30/11 Review of Systems - Review of Systems Constitutional: No symptoms reported EENT: No symptoms reported Cardiovascular: No symptoms reported Respiratory: No symptoms reported Gastrointestinal: See HPI Genitourinary: No symptoms reported Female Genitourinary: No symptoms reported Musculoskeletal: No symptoms reported Skin: No symptoms reported Hematologic/Lymphatic: No symptoms reported Neurological/Psychological: No symptoms reported Physical Exam - Vital signs Vitals: Temp Pulse Resp BP Pulse Ox 98.2 F 75 18 121/62 94 02/06/19 18:14 02/06/19 18:14 02/06/19 18:14 02/06/19 18:14 02/06/19 18:14 - Notes Notes: GENERAL: Alert, interacts well. No acute distress. HEAD: Normocephalic, atraumatic. EYES: Pupils equal, round, and reactive to light. Extraocular movements intact. ENT: Oral mucosa moist, tongue midline. Oropharynx unremarkable. Airway patent. LUNGS: Clear to auscultation bilaterally, no wheezes, rales, or rhonchi. No respiratory distress. HEART: Regular rate and rhythm. No murmur ABDOMEN: Soft, non-tender. Non-distended. Bowel sounds present in all 4 quadran ts. RECTAL: Obvious external hemorrhoid at the 4 o'clock position, this is large, mildly tender, small scab over this. No current bleeding. No noted erythematous areas, indurated areas, or significant tenderness. Rectal examination is unremarkable otherwise. Exam performed with Allison RN at [facility]. EXTREMITIES: Moves all 4 extremities spontaneously. No edema, normal radial and dorsalis pedis pulses bilaterally. No cyanosis. BACK: no cervical, thoracic, lumbar midline tenderness. No saddle anesthesia, normal distal neurovascular exam. Moves all extremities in full range of motion. NEUROLOGICAL: Alert and oriented x3. Normal speech. Cranial nerves II through XII grossly intact. PSYCH: Normal affect, normal mood. SKIN: Warm, dry, normal turgor. No rashes or lesions noted. Course - Re-evaluation Re-evalutation: Patient has an obvious external hemorrhoid that appears to have recently bled, there is a small scab where it was bleeding from. There is not significantly tender, it is not erythematous, there is no sign of secondary infection or abscess, there is no current bleeding. Examination is unremarkable otherwise. I did review laboratory studies and these do not show any concerning findings including no anemia. Patient with no other complaints, no abdominal tenderness, she already follows with a local surgical clinic and asks to be sent there. I suspect she has some constipation secondary to her pain medication use, placing on stool softeners, discussed this, discussed additional treatments, discussed return precautions. Patient states appreciation and agreement. - Vital Signs Vital signs: Temp Pulse Resp BP Pulse Ox 97.3 F 68 16 132/85 H 98 02/06/19 22:45 02/06/19 22:45 02/06/19 22:45 02/06/19 22:45 02/06/19 22:45 - Laboratory Result Diagrams: 02/06/19 19:30 02/06/19 19:30 Laboratory results interpreted by me: 02/06/19 02/06/19 19:30 19:30 WBC 11.8 H Est GFR (MDRD) Non-Af 59 L Discharge - Discharge Clinical Impression: Rectal bleeding, External hemorrhoid Condition: Stable Disposition: HOME, SELF-CARE Additional Instructions: Your laboratory work-up does not show any concerning findings. Your exam indicates an external hemorrhoid, this appears to be where your bleeding from earlier. I recommend taking the stool softeners as prescribed for the next week or so, avoid any straining on the toilet, apply topical medication to the area, and follow-up with the referral for additional management. Return/be seen again for any concerning symptoms including fever, increasing pain, or an enlarging mass around the anus, or if you simply fail to improve with treatment. See additional details below. Hemorrhoids You have hemorrhoids. These are formed by enlargement of veins around the anus. The cause is increased pressure in the veins, from or straining at bowel movements. Hemorrhoids often cause itching and bleeding with bowel movements. When a hemorrhoid becomes clotted, pain and swelling result. Soothing creams and suppositories are often prescribed. Warm sitz-baths may also decrease pain, swelling, and itching. Eat a high-fiber diet. Stool softeners such as Metamucil will help. Keep the area very clean. Medicated cleansing pads (such as Tucks) are useful after bowel movements. A hose-mounted shower unit (like a shower massager at low water pressure) can be used to clean around tender hemorrhoid tags. Prescriptions: Phenylephrine HCl [Anusol Suppository] 1 supp.rect AR BID #28 supp.rect Docusate Sodium [Colace 100 mg Capsule] 100 mg PO ASDIR PRN #30 capsule PRN Reason: Referrals: [facility] [Provider Group] - Follow up in 3-5 days
[2019-02-06 22:47] VITALS: BP 132/85
== END 2019-02-06 22:47 | disposition home or self-care (01) ==
LOC: ER 18:02
DX: K62.89 Other specified diseases of anus and rectum (principal); K64.4 Residual hemorrhoidal skin tags; F17.200 Nicotine dependence, unspecified, uncomplicated; I25.10 Atherosclerotic heart disease of native coronary artery without angina pectoris; I10 Essential (primary) hypertension; J44.9 Chronic obstructive pulmonary disease, unspecified; Z85.3 Personal history of malignant neoplasm of breast
CPT/HCPCS: 36415; 80053; 85025; 85610; 85730; 99283

== ENCOUNTER → 2019-02-28 | Outpatient (CLI) | payer MEDICARE, MEDICAID ==
[2019-02-28 10:22] LABS: HEMATOCRIT 48.6 % (36.0-47.0); HEMOGLOBIN 16.4 g/dL (12.0-15.5); MEAN CORPUSCULAR HEMOGLOBIN 29.4 pg (27.0-33.4); MEAN CORPUSCULAR HGB CONC 33.7 g/dL (32.0-36.0); MEAN CORPUSCULAR VOLUME 87 fl (80-97); PLATELET COUNT 208 10^3/uL (150-450); RED BLOOD COUNT 5.56 10^6/uL (3.72-5.28); RED CELL DISTRIBUTION WIDTH 14.1 % (11.5-14.0); WHITE BLOOD COUNT 14.6 10^3/uL (4.0-10.5)
[2019-02-28 10:28] LABS: INTERNATIONAL RATION (INR) 0.95; PARTIAL THROMBOPLASTIN TIME 23.4 SEC (23.5-35.8); PROTHROMBIN TIME 12.7 SEC (11.4-15.4)
[2019-02-28 10:50] LABS: ANION GAP 6 (5-19); BLOOD UREA NITROGEN 17 mg/dL (7-20); CALCIUM 9.5 mg/dL (8.4-10.2); CARBON DIOXIDE 32 mmol/L (22-30); CHLORIDE 101 mmol/L (98-107); GLUCOSE 95 mg/dL (75-110); POTASSIUM 4.6 mmol/L (3.6-5.0)
== END ==
LOC: OD 09:19
PROVIDERS: ATTEND Internal Medicine Cardiovascular Disease
DX: Z01.810 Encounter for preprocedural cardiovascular examination (principal); R07.89 Other chest pain; Z79.01 Long term (current) use of anticoagulants
CPT/HCPCS: 36415; 80048; 85027; 85610; 85730

== ENCOUNTER 2019-05-11 12:23 | Emergency (ER) | payer MEDICARE, MEDICAID ==
--- NOTE | 2019-05-11 13:28 | RADIOLOGY REPORT (SQ) ---
EXAM DESCRIPTION: CHEST 2 VIEWS COMPLETED DATE/TIME: 05/11/2019 1:14 pm REASON FOR STUDY: cough/chills COMPARISON: Chest films 07/11/2008, 01/05/2012, 02/06/2012, 02/08/2012 EXAM PARAMETERS: NUMBER OF VIEWS: two views TECHNIQUE: Digital Frontal and Lateral radiographic views of the chest acquired. RADIATION DOSE: NA LIMITATIONS: none FINDINGS: LUNGS AND PLEURA: No opacities, masses or pneumothorax. No pleural effusion. MEDIASTINUM AND HILAR STRUCTURES: No masses or contour abnormalities. HEART AND VASCULAR STRUCTURES: Heart normal size. No evidence for failure. BONES: No acute findings. HARDWARE: None in the chest. OTHER: No other significant finding. IMPRESSION: NO ACUTE RADIOGRAPHIC FINDING IN THE CHEST. TECHNICAL DOCUMENTATION: JOB ID: [id number] [employer]- All Rights Reserved Reading location - IP/workstation name: [email or web address]
--- NOTE | 2019-05-11 14:41 | ER Document Report ---
HPI - HPI Time Seen by Provider: 05/11/19 12:51 Pain Level: Denies Notes: Otherwise healthy 61-year-old female presenting with cough, congestion and intermittent fevers over the last few days. She denies any chest pain, shortness of breath, nausea, vomiting or diarrhea. She is concerned she may have the flu or pneumonia. - CONSTITUTIONAL Constitutional: DENIES: Fever, Chills - REPRODUCTIVE Reproductive: DENIES: : Past Medical History - General Information source: Patient - Social History Smoking Status: Current Every Day Smoker Chew tobacco use (# tins/day): No Frequency of alcohol use: None Drug Abuse: None Family History: Reviewed & Not Pertinent Patient has suicidal ideation: No Patient has homicidal ideation: No - Past Medical History Cardiac Medical History: Reports: Hx Coronary Artery Disease, Hx Heart Attack - 2009, Hx Hypercholesterolemia, Hx Hypertension Denies: Hx Atrial Fibrillation, Hx Congestive Heart Failure, Hx Peripheral Vascular Disease, Hx Pulmonary Embolism, Hx Heart Murmur Pulmonary Medical History: Reports: Hx COPD - no inhalers Denies: Hx Asthma, Hx Bronchitis, Hx Pneumonia, Hx Respiratory Failure, Hx Sleep Apnea, Hx Tuberculosis Neurological Medical History: Denies: Hx Cerebrovascular Accident, Hx Seizures, Hx Parkinson's Disease Endocrine Medical History: Denies: Hx Graves' Disease, Hx Hyperthyroidism, Hx Hypothyroidism Renal/ Medical History: Denies: Hx End Stage Renal Disease, Hx Kidney Stones, Hx Ovarian Cysts, Hx Peritoneal Dialysis, Hx Pelvic Inflammatory Disease Malignancy Medical History: Reports: Hx Breast Cancer. Denies: Hx Cervical Cancer, Hx Leukemia, Hx Lung Cancer, Hx Ovarian Cancer GI Medical History: Denies: Hx Crohn's Disease, Hx Gastroesophageal Reflux Disease, Hx Hepatitis, Hx Hiatal Hernia, Hx Irritable Bowel, Hx Liver Failure, Hx Pancreatitis, Hx Ulcer Musculoskeletal Medical History: Reports Hx Arthritis - ra, Denies Hx Fibromyal juliann, Denies Hx Multiple Sclerosis, Denies Hx Muscular Dystrophy, Denies Hx Systemic Lupus Erythematosus Psychiatric Medical History: Reports: Hx Bipolar Disorder Denies: Hx Dementia, Hx Depression, Hx Post Traumatic Stress Disorder, Hx Schizophrenia Traumatic Medical History: Denies: Hx Fractures Infectious Medical History: Denies: Hx Hepatitis, Hx HIV Past Surgical History: Reports: Hx Appendectomy, Hx Cholecystectomy, Hx Mastectomy - bilateral AVOID RIGHT, Hx Tonsillectomy. Denies: Hx Bowel Surgery, Hx Section, Hx Colostomy, Hx Coronary Artery Bypass Graft, Hx Gastric Bypass Surgery, Hx Herniorrhaphy, Hx Hysterectomy, Hx Pacemaker, Hx Tubal Ligation. Comment Only: Hx Open Heart Surgery - stentsX2 - Immunizations Hx Diphtheria, Pertussis, Tetanus Vaccination: Yes Hx Pneumococcal Vaccination: 11/30/11 Vertical Provider Document - CONSTITUTIONAL Notes: PHYSICAL EXAMINATION: GENERAL: Well-appearing, well-nourished and in no acute distress. HEAD: Atraumatic, normocephalic. EYES: Pupils equal round and reactive to light, extraocular movements intact, conjunctiva are normal. ENT: Nares patent, oropharynx clear without exudates. Moist mucous membranes. NECK: Normal range of motion, supple without lymphadenopathy LUNGS: Breath sounds clear to auscultation bilaterally and equal. No wheezes rales or rhonchi. HEART: Regular rate and rhythm without murmurs ABDOMEN: Soft, nontender, nondistended abdomen. No guarding, no rebound. No masses appreciated. Female : deferred Musculoskeletal: Normal range of motion, no pitting or edema. No cyanosis. NEUROLOGICAL: Cranial nerves grossly intact. Normal speech, normal gait. Normal sensory, motor exams PSYCH: Normal mood, normal affect. SKIN: Warm, Dry, normal turgor, no rashes or lesions noted. - INFECTION CONTROL TRAVEL OUTSIDE OF THE [place] IN LAST 30 DAYS: No Course - Re-evaluation Re-evalutation: Chest X-Ray 05/11/19 12:56 IMPRESSION: NO ACUTE RADIOGRAPHIC FINDING IN THE CHEST. Patient appears well, nontoxic, vital signs within normal limits. Her lung sounds are clear and equal bilaterally. No acute radiographic finding on the chest x-ray. She describes her fevers as being as high as 99, no indication for influenza testing. Likely viral illness. Patient will be discharged home in stable condition at this time. - Vital Signs Vital signs: Temp Pulse Resp BP Pulse Ox 98.1 F 78 18 138/66 H 95 05/11/19 12:28 05/11/19 12:28 05/11/19 12:28 05/11/19 12:28 05/11/19 12:28 Discharge - Discharge Clinical Impression: Viral upper respiratory illness Condition: Stable Disposition: HOME, SELF-CARE Instructions: Upper Respiratory Illness ([facility]) Additional Instructions: Please take medications as prescribed. Take guaifenesin as directed on the bottle, you can buy this [id number], this will help thin the secretions. Take ibuprofen 600 mg every 6 hours for any fever or body aches. Follow-up with your primary care provider next week for recheck. Return to the emergency department any new or worsening symptoms or difficulty breathing. Prescriptions: Prednisone [Deltasone 20 mg Tablet] 3 tab PO DAILY 5 Days #15 tablet Referrals: SON PARADA MD [Primary Care Provider] - Follow up as needed
[2019-05-11 14:48] VITALS: BP 121/78
== END 2019-05-11 14:56 | disposition home or self-care (01) ==
LOC: ER 12:23
DX: J06.9 Acute upper respiratory infection, unspecified (principal); R50.9 Fever, unspecified; F17.200 Nicotine dependence, unspecified, uncomplicated; I25.10 Atherosclerotic heart disease of native coronary artery without angina pectoris; E78.00 Pure hypercholesterolemia, unspecified; I10 Essential (primary) hypertension; I25.2 Old myocardial infarction
CPT/HCPCS: 71046; 99283

== ENCOUNTER → 2019-07-08 | Outpatient (CLI) | payer MEDICARE, MEDICAID ==
[2019-07-08 10:15] LABS: ALKALINE PHOSPHATASE 91 U/L (38-126); ANION GAP 7 (5-19); ASPARTATE AMINO TRANSFERASE 33 U/L (14-36); BILIRUBIN,TOTAL 0.5 mg/dL (0.2-1.3); BLOOD UREA NITROGEN 14 mg/dL (7-20); CALCIUM 9.2 mg/dL (8.4-10.2); CARBON DIOXIDE 25 mmol/L (22-30); CHLORIDE 105 mmol/L (98-107); CHOLESTEROL 180.49 mg/dL (0-200); GLUCOSE 98 mg/dL (75-110); POTASSIUM 4.4 mmol/L (3.6-5.0); TOTAL PROTEIN 6.9 g/dL (6.3-8.2); TRIGLYCERIDES 329 mg/dL (<150)
[2019-07-08 10:26] LABS: DIRECT LDL 95 mg/dL (<100)
[2019-07-08 10:32] LABS: VLDL CHOLESTEROL 65.8 mg/dL (10-31)
== END ==
LOC: OD 09:24
PROVIDERS: ATTEND Internal Medicine Cardiovascular Disease
DX: E78.2 Mixed hyperlipidemia (principal); I10 Essential (primary) hypertension; Z79.899 Other long term (current) drug therapy
CPT/HCPCS: 36415; 80048; 80061; 80076

== ENCOUNTER → 2019-09-23 | Outpatient (CLI) | payer MEDICARE, MEDICAID ==
[2019-09-23 10:20] LABS: ALBUMIN 3.8 g/dL (3.5-5.0); ALKALINE PHOSPHATASE 103 U/L (38-126); ANION GAP 7 (5-19); ASPARTATE AMINO TRANSFERASE 32 U/L (14-36); BILIRUBIN,TOTAL 0.6 mg/dL (0.2-1.3); BLOOD UREA NITROGEN 12 mg/dL (7-20); CALCIUM 9.1 mg/dL (8.4-10.2); CARBON DIOXIDE 26 mmol/L (22-30); CHLORIDE 106 mmol/L (98-107); CHOLESTEROL 132.92 mg/dL (0-200); GLUCOSE 113 mg/dL (75-110); POTASSIUM 4.5 mmol/L (3.6-5.0); TOTAL PROTEIN 6.5 g/dL (6.3-8.2); TRIGLYCERIDES 206 mg/dL (<150)
[2019-09-23 10:31] LABS: DIRECT LDL 67 mg/dL (<100)
[2019-09-23 10:34] LABS: VLDL CHOLESTEROL 41.2 mg/dL (10-31)
== END ==
LOC: OD 08:57
PROVIDERS: ATTEND Internal Medicine Cardiovascular Disease
DX: E78.2 Mixed hyperlipidemia (principal); I10 Essential (primary) hypertension; Z79.899 Other long term (current) drug therapy
CPT/HCPCS: 36415; 80048; 80061; 80076

== ENCOUNTER → 2019-12-24 | Outpatient (CLI) | payer MEDICARE, MEDICAID ==
[2019-12-24 09:48] LABS: ALKALINE PHOSPHATASE 97 U/L (38-126); ANION GAP 8 (5-19); ASPARTATE AMINO TRANSFERASE 34 U/L (14-36); BILIRUBIN,DIRECT 0.3 mg/dL (0.0-0.4); BILIRUBIN,TOTAL 0.7 mg/dL (0.2-1.3); BLOOD UREA NITROGEN 15 mg/dL (7-20); CALCIUM 9.6 mg/dL (8.4-10.2); CARBON DIOXIDE 28 mmol/L (22-30); CHLORIDE 104 mmol/L (98-107); CHOLESTEROL 146.13 mg/dL (0-200); GLUCOSE 114 mg/dL (75-110); POTASSIUM 4.5 mmol/L (3.6-5.0); TOTAL PROTEIN 6.7 g/dL (6.3-8.2); TRIGLYCERIDES 256 mg/dL (<150)
[2019-12-24 09:59] LABS: DIRECT LDL 72 mg/dL (<100)
[2019-12-24 10:06] LABS: VLDL CHOLESTEROL 51.2 mg/dL (10-31)
== END ==
LOC: OD 08:38
PROVIDERS: ATTEND Internal Medicine Cardiovascular Disease
DX: E78.2 Mixed hyperlipidemia (principal); I10 Essential (primary) hypertension; Z79.899 Other long term (current) drug therapy
CPT/HCPCS: 36415; 80048; 80061; 80076

== ENCOUNTER → 2020-03-26 | Outpatient (CLI) | payer MEDICARE, MEDICAID ==
[2020-03-26 10:10] LABS: ALBUMIN 4.3 g/dL (3.5-5.0); ALKALINE PHOSPHATASE 116 U/L (38-126); ANION GAP 9 (5-19); ASPARTATE AMINO TRANSFERASE 43 U/L (14-36); BILIRUBIN,DIRECT 0.1 mg/dL (0.0-0.4); BILIRUBIN,TOTAL 0.6 mg/dL (0.2-1.3); BLOOD UREA NITROGEN 14 mg/dL (7-20); CALCIUM 9.5 mg/dL (8.4-10.2); CARBON DIOXIDE 26 mmol/L (22-30); CHLORIDE 105 mmol/L (98-107); CHOLESTEROL 169.43 mg/dL (0-200); GLUCOSE 113 mg/dL (75-110); POTASSIUM 4.5 mmol/L (3.6-5.0); TRIGLYCERIDES 244 mg/dL (<150)
[2020-03-26 10:21] LABS: DIRECT LDL 90 mg/dL (<100)
[2020-03-26 10:33] LABS: VLDL CHOLESTEROL 48.8 mg/dL (10-31)
== END ==
LOC: OD 08:58
PROVIDERS: ATTEND Internal Medicine Cardiovascular Disease
DX: E78.2 Mixed hyperlipidemia (principal); I10 Essential (primary) hypertension; R94.5 Abnormal results of liver function studies; Z79.899 Other long term (current) drug therapy
CPT/HCPCS: 36415; 80048; 80061; 80076